=== PATIENT | female | born 1960 | race Caucasian/White ===

== ENCOUNTER 2018-01-22 13:54 | Emergency (ER) | payer BC ==
[~2018-01-22] VITALS: Ht 154.9 cm; Wt 74.8 kg
[2018-01-22 14:12] VITALS: Ht 154.9 cm; Wt 74.8 kg
[2018-01-22 14:44] LABS: CALCIUM 7.8 mg/dL (8.5-10.1); CARBON DIOXIDE 24.7 mmol/L (21-32); CHLORIDE SERUM 111 mmol/L (98-107); CREATININE SERUM 0.8 mg/dL (0.6-1.0); GFR1 > 60 mL/min; GLUCOSE SERUM 139 mg/dL (74-106); POTASSIUM SERUM 3.2 mmol/L (3.5-5.1); SODIUM SERUM 143 mmol/L (136-145)
[2018-01-22 14:45] LABS: BASOPHIL % 0.1 % (0-2); PLATELET COUNT 193 x10^3mcL (130-400); RED CELL DISTRIBUTION WIDTH 13.6 % (11.5-14.5)
[2018-01-22 14:49] LABS: ALKALINE PHOSPHATASE 109 U/L (46-116); ALT/SGPT 21 U/L (14-59); AST/SGOT 24 U/L (15-37); BILIRUBIN TOTAL 0.8 mg/dL (0.20-1.00); TOTAL PROTEIN, SERUM 6.3 g/dL (6.4-8.2)
[2018-01-22 16:51] VITALS: BP 115/73
== END 2018-01-22 16:51 | disposition home or self-care (01) ==
LOC: EDBD 13:54 → ED 13:54
PROVIDERS: Emergency Medicine
DX: R55 Syncope and collapse (principal); R53.1 Weakness; R42 Dizziness and giddiness; T67.5XXA Heat exhaustion, unspecified, initial encounter; X58.XXXA Exposure to other specified factors, initial encounter; Y93.89 Activity, other specified; Y92.89 Other specified places as the place of occurrence of the external cause; Y99.8 Other external cause status
CPT/HCPCS: J1885; J2405; J7030